=== PATIENT | female | born 1945 | race Caucasian/White ===

== ENCOUNTER 2016-06-12 14:53 | Emergency (ER) | payer MEDICARE ==
[2016-06-12] MEDS ORDERED: ALUMINUM & MAGNESIUM HYDROXIDE 30 ML UD PO ONE (15:06)
[2016-06-12] MEDS ORDERED: ACETAMINOPHEN 325 MG TAB PO ONE (15:06)
[2016-06-12 16:47] VITALS: BP 118/60; O2SAT 94
--- NOTE | 2016-06-12 16:59 | ED.PDOC ---
History of Present Illness - General Chief Complaint: Fever Stated Complaint: fever,chills,nausea,JAVED Time Seen by Provider: 06/12/16 14:58 Source: patient Exam Limitations: no limitations - History of Present Illness Initial Comments: the patient is a 71-year-old female presenting to the emergency room secondary to nausea and vomiting mild body aches and mild headache for the last 12 hours. No blood or bile in the vomitus. No diarrhea. No syncope or near syncope. She has had a fever. She has had some questionable urinary symptoms. No rash. Mild sore throat. Severity: moderate Improving Factors: medication Worsening Factors: nothing Associated Symptoms: loss of appetite, malaise, nausea/vomiting Allergies/Adverse Reactions: Allergies Sulfa Antibiotics Allergy (Verified 06/12/16 15:15) Home Medications: Ambulatory Orders Ondansetron [Zofran Odt] 4 mg PO Q4H PRN #10 tab 06/12/16 Review of Systems - Review of Systems Constitutional: States: fever, malaise EENTM: States: no symptoms reported, throat pain - mild Respiratory: States: no symptoms reported Cardiology: States: no symptoms reported Gastrointestinal/Abdominal: States: see HPI Genitourinary: States: frequency Musculoskeletal: States: other - mild generalized body aches Skin: States: no symptoms reported Neurological: States: headache - mild Endocrine: States: no symptoms reported All other Systems: No Change from Baseline Past Medical History (General) - Patient Medical History Hx Diabetes: No Hx Cancer: Yes - Skin,Breast - Vaccination History Hx Influenza Vaccination: Yes Hx Pneumococcal Vaccination: Yes - Social History Hx Tobacco Use: Yes Family Medical History - Family History Mother Family History: Unknown Living Status: Unknown Physical Exam - Physical Exam General Appearance: Alert, Comfortable, No apparent distress Eye Exam: bilateral normal Ears, Nose, Throat: hearing grossly normal, normal ENT inspection, normal pharynx Neck: non-tender, full range of motion, supple, normal inspection Respiratory: chest non-tender, lungs clear, normal breath sounds, no respiratory distress, no accessory muscle use Cardiovascular/Chest: normal peripheral pulses, regular rate, rhythm, no edema Peripheral Pulses: radial,right: 2+, radial,left: 2+, dorsalis pedis,right: 2+, dorsalis pedis,left: 2+ Gastrointestinal/Abdominal: soft, other - mild epigastric discomfort palpation Rectal Exam: deferred Back Exam: normal inspection, no CVA tenderness Extremity: normal range of motion, non-tender, normal inspection, no pedal edema , normal capillary refill Neurologic: cranberry grower II-XII nml as tested, alert, normal mood/affect, oriented x 3 Skin Exam: normal color Comments: Vital Signs - 24 hr 06/12/16 06/12/16 06/12/16 15:04 16:36 16:46 Temperature 101.4 F H 100.4 F H Pulse Rate [ 97 H 94 H Left Brachial] Respiratory 20 16 Rate Blood Pressure 150/83 118/60 [Left Arm] O2 Sat by Pulse 100 94 L Oximetry Progress - Progress Progress: 06/12/16 16:59 the patient is a 71-year-old female presenting with a viral syndrome giving symptoms of primarily a gastroenteritis. She needs to keep herself well hydrated. She will receive a prescription for Zofran for as needed use to control the nausea. Maalox additionally can be used for gastritis symptoms. She needs to follow up with her primary care doctor towards the end of the week. A check of the urine shows no evidence of urinary tract infection. The patient is feeling significantly better after her fever was under control. - Results/Orders Results/Orders: Laboratory Tests 06/12/16 06/12/16 15:06 15:17 Urine Color Yellow Urine Appearance Cloudy Urine pH 7.5 Ur Specific [place] 1.020 Urine Protein Negative Urine Glucose (UA) Negative Urine Ketones Negative Urine Blood Small H Urine Nitrite Negative Urine Bilirubin Negative Urine Urobilinogen 2.0 H Ur Leukocyte Esterase Negative Urine RBC 3-5 H Urine WBC 0 Ur Epithelial Cells 5-10 Urine Bacteria 0 Urine Mucus Moderate Group A Strep Rapid Negative rapid flu and rapid strep are negative. Departure - Departure Clinical Impression: Viral syndrome Disposition: Discharge to Home or Self Care Condition: Fair Departure Forms: ED Discharge - Pt. Copy, Patient Portal Self Enrollment Instructions: DI for Viral Gastroenteritis -- Adult Diet: bland diet Activity: increase activity as tolerated Referrals: LELAND BURKS [Primary Care Provider] - 1-2 Weeks Prescriptions: Ondansetron [Zofran Odt] 4 mg PO Q4H PRN #10 tab PRN Reason: Vomiting Home Medications: Ambulatory Orders Ondansetron [Zofran Odt] 4 mg PO Q4H PRN #10 tab 06/12/16 Comments: the patient is a 71-year-old female presenting with a viral syndrome giving symptoms of primarily a gastroenteritis. She needs to keep herself well hydrated. She will receive a prescription for Zofran for as needed use to control the nausea. Maalox additionally can be used for gastritis symptoms. She needs to follow up with her primary care doctor towards the end of the week. A check of the urine shows no evidence of urinary tract infection. The patient is feeling significantly better after her fever was under control.
[2016-06-12 17:07] VITALS: TEMP 100.1
== END 2016-06-12 17:06 | disposition home or self-care (01) ==
LOC: ER 14:53
DX: B34.9 Viral infection, unspecified (principal); Z88.2 Allergy status to sulfonamides; Z85.828 Personal history of other malignant neoplasm of skin; Z85.3 Personal history of malignant neoplasm of breast; Z87.891 Personal history of nicotine dependence

== ENCOUNTER 2020-01-23 19:26 | Emergency (ER) | payer MEDICARE, OTHER ==
--- NOTE | 2020-01-23 20:10 | RAD ---
EXAM DESCRIPTION: XR Knee, Left Complete CLINICAL HISTORY: fall TECHNIQUE: Three views of the left knee are submitted. COMPARISON: None available for comparison FINDINGS: Bones: Osseous structures are osteopenic. Obliquely oriented lucency extending from the tibial eminence to the lateral tibial metaphysis on one view. Cortical step-off along the medial aspect of the fibular head. Joints: No dislocation. No appreciable joint effusion. Soft tissues: Unremarkable IMPRESSION: Possible lateral tibial plateau and fibular head fractures. Electronically signed by: Theo Vasquez MD 01/23/2020 8:08 PM CDT
--- NOTE | 2020-01-23 20:43 | ED.PDOC ---
History of Present Illness - General Chief Complaint: Trauma Stated Complaint: my left knee hurts Time Seen by Provider: 01/23/20 20:17 Source: patient, RN notes reviewed, Vital Signs reviewed, family - Exam Limitations: no limitations - History of Present Illness Initial Comments: Patient is a 74-year-old white female who presents with complaints of left knee pain. Patient was working in the backyard when she slipped down a curve's between 2 stones approximately 3 feet and landed hard on her left leg. She did not twist it at that time. Patient complains of inability to weight-bear. The pain is stabbing/throbbing in nature. It is moderate in intensity. There is no radiation of the pain. It is worse with twisting of the knee or attempting to stand on it. It is better with ice and elevation. The pain is constant. Occurred: just prior to arrival Severity: moderate Pain Location: lower extremity - left knee Method of Injury: fall Improving Factors: cold therapy, immobilization Worsening Factors: movement, other - standing/walking Loss of Consciousness: no loss of consciousness Associated Symptoms (Fall): denies symptoms Allergies/Adverse Reactions: Allergies Sulfa Antibiotics Allergy (Verified 06/12/16 15:15) Home Medications: Ambulatory Orders Alendronate Sodium [Fosamax] 70 mg PO WKLY 01/23/20 Levothyroxine Sodium [Synthroid] 88 mcg PO DAILY 01/23/20 Review of Systems - Review of Systems Constitutional: States: no symptoms reported, see HPI. Denies: chills, fever, malaise, weakness EENTM: States: no symptoms reported. Denies: eye pain, blurred vision, double v ision Respiratory: States: no symptoms reported. Denies: wheezing Cardiology: States: no symptoms reported. Denies: chest pain, palpitations, syncope Gastrointestinal/Abdominal: States: no symptoms reported. Denies: abdominal pain, nausea, vomiting Genitourinary: States: no symptoms reported. Denies: dysuria, frequency Musculoskeletal: States: see HPI, joint pain, joint swelling. Denies: back pain Skin: States: no symptoms reported. Denies: change in color, rash Neurological: States: no symptoms reported. Denies: tingling, tremors, other Endocrine: States: no symptoms reported. Denies: increased hunger, increased thirst, increased urine Hematologic/Lymphatic: States: no symptoms reported. Denies: blood clots, easy bleeding All other Systems: Reviewed and Negative, No Change from Baseline Past Medical History (General) - Patient Medical History Hx Diabetes: No Hx Cancer: Yes - Skin,Breast - Vaccination History Hx Tetanus, Diphtheria Vaccination: Yes - tetanus 2020 Hx Influenza Vaccination: Yes Hx Pneumococcal Vaccination: Yes - due this year for pneumonia Immunizations Up to Date: Yes - Social History Hx Tobacco Use: No Hx Alcohol Use: No Hx Substance Use: No Hx Substance Use Treatment: No Hx Depression: No Family Medical History - Family History Mother Family History: Unknown Living Status: Unknown Physical Exam - Physical Exam General Appearance: Alert, Anxious, Well Developed, Well Groomed, Well Hydrated, Well Nourished Head Injury: no evidence of injury Eye Exam: bilateral normal ENT Exam: hearing grossly normal, no evidence of ENT injury, no dental injury Neck Exam: non-tender, full range of motion, normal alignment Cardiovascular/Respiratory: regular rate, rhythm, no M/R/G, normal peripheral pulses, no JVD, normal breath sounds, no respiratory distress Gastrointestinal/Abdominal: normal bowel sounds, non tender, soft, no organomegaly Back Exam: normal inspection, no CVA tenderness, no vertebral tenderness Extremity Exam: pelvis stable, joint effusion - left knee, tenderness - left lateral/posterior knee. +Pain with valgus stress. No joint laxity., unable to bear weight Neurologic: dry curer II-XII nml as tested, no motor/sensory deficits, alert, normal mood/affect, oriented x 3 Skin Exam: normal color, warm/dry - Sharif Coma Score Best Eye Response ([place]): (4) open spontaneously Best Verbal Response (Sharif): (5) oriented Best Motor Response (Sharif): (6) obeys commands Progress - Progress Progress: Differential diagnosis: Knee contusion, knee sprain, fibular head fracture, tibia fracture among others. 01/23/20 22:47 CT scan shows a tibial plateau fracture and fibular head fracture. I have discussed this with Dr. cardenas and he recommends knee immobilizer, crutches and nonweightbearing and follow-up in his clinic in the next few days. I discussed this plan of care with the patient and his and they voiced understanding and agreement with the plan of care. Plan discharge home at this time. Jensen Mahmood M.D. #[id number] - Results/Orders Results/Orders: EXAM DESCRIPTION: XR Knee, Left Complete CLINICAL HISTORY: fall TECHNIQUE: Three views of the left knee are submitted. COMPARISON: None available for comparison FINDINGS: Bones: Osseous structures are osteopenic. Obliquely oriented lucency extending from the tibial eminence to the lateral tibial met aphysis on one view. Cortical step-off along the medial aspect of the fibular head. Joints: No dislocation. No appreciable joint effusion. Soft tissues: Unremarkable IMPRESSION: Possible lateral tibial plateau and fibular head fractures. PROCEDURE: CT LOWER EXTREMITY WITHOUT IV CONTRAST CLINICAL HISTORY: left knee pain TECHNIQUE: Contiguous axial CT images obtained through the left knee with out IV contrast. Coronal and sagittal reformatted images were provided. This exam was performed according to our departmental dose-optimization program, which includes automated exposure control, adjustment of the mA and/or kV according to patient size and/or use of iterative reconstruction technique. COMPARISON: Correlation is made with left knee x-ray dated 01/23/2020 FINDINGS: Bones: Osseous structures are osteopenic. Obliquely oriented fracture extending from the tibial eminence to the lateral aspect of the proximal tibial metaphysis and involving approximately 50% of the articular surface. No cortical step-off at the articular surface. Mildly displaced fibular head fracture. Joints: No dislocation. Small lipohemarthrosis. Soft tissues: Mild surrounding superficial and deep soft tissue edema. IMPRESSION: Lateral tibial plateau and fibular head fractures. Electronically signed by: Theo Vasquez MD 01/23/2020 10:25 PM CDT Departure - Departure Clinical Impression: Tibial plateau fracture, left Qualifiers: Encounter type: initial encounter Fracture type: closed Qualified Code(s): S82.142A - Displaced bicondylar fracture of left tibia, initial encounter for closed fracture Fracture of head of left fibula Qualifiers: Encounter type: initial encounter Fracture type: closed Qualified Code(s): S82.832A - Other fracture of upper and lower end of left fibula, initial encounter for closed fracture Fall Qualifiers: Encounter type: initial encounter Qualified Code(s): W19.XXXA - Unspecified fall, initial encounter Time of Disposition: 22:50 Disposition: Discharge to Home or Self Care Condition: Good Departure Forms: ED Discharge - Pt. Copy, Patient Portal Self Enrollment Instructions: DI for Trauma, Tibial Plateau Fracture (DC), Fibula Fracture (DC) Diet: resume usual diet Activity: other - non weight bearing. Use crutches. Referrals: LELAND BURKS [Primary Care Provider] - 1-2 Weeks Beau Cardenas MD [Active Staff] - 1-5 Days Home Medications: Ambulatory Orders Alendronate Sodium [Fosamax] 70 mg PO WKLY 01/23/20 Levothyroxine Sodium [Synthroid] 88 mcg PO DAILY 01/23/20
[2020-01-23 22:18] VITALS: O2SAT 100
--- NOTE | 2020-01-23 22:27 | CT ---
PROCEDURE: CT LOWER EXTREMITY WITHOUT IV CONTRAST CLINICAL HISTORY: left knee pain TECHNIQUE: Contiguous axial CT images obtained through the left knee without IV contrast. Coronal and sagittal reformatted images were provided. This exam was performed according to our departmental dose-optimization program, which includes automated exposure control, adjustment of the mA and/or kV according to patient size and/or use of iterative reconstruction technique. COMPARISON: Correlation is made with left knee x-ray dated 01/23/2020 FINDINGS: Bones: Osseous structures are osteopenic. Obliquely oriented fracture extending from the tibial eminence to the lateral aspect of the proximal tibial metaphysis and involving approximately 50% of the articular surface. No cortical step-off at the articular surface. Mildly displaced fibular head fracture. Joints: No dislocation. Small lipohemarthrosis. Soft tissues: Mild surrounding superficial and deep soft tissue edema. IMPRESSION: Lateral tibial plateau and fibular head fractures. Electronically signed by: Theo Vasquez MD 01/23/2020 10:25 PM CDT
[2020-01-23 23:16] VITALS: BP 167/101; TEMP 97.4
== END 2020-01-23 23:16 | disposition home or self-care (01) ==
LOC: ER 19:26
DX: S82.142A Displaced bicondylar fracture of left tibia, initial encounter for closed fracture (principal); Z85.828 Personal history of other malignant neoplasm of skin; Z85.3 Personal history of malignant neoplasm of breast; Z88.2 Allergy status to sulfonamides; W01.0XXA Fall on same level from slipping, tripping and stumbling without subsequent striking against object, initial encounter; Y93.H2 Activity, gardening and landscaping; Y92.007 Garden or yard of unspecified non-institutional (private) residence as the place of occurrence of the external cause

== ENCOUNTER → 2020-02-13 | Outpatient (CLI) | payer OTHER ==
--- NOTE | 2020-02-13 08:52 | RAD ---
EXAM DESCRIPTION: Knee,Left 1 or 2 Views CLINICAL HISTORY: CLOSED FX OF LEFT TIBIAL PLATEAU COMPARISON: January 23, 2020 IMPRESSION: 2 views of the left knee show severe diffuse osteopenia the osseous structures. The left lateral tibial plateau fracture shows sclerotic changes and indistinctness of the fracture margin suggesting mild healing similar to previous exam. Comminuted mildly displaced fracture of the fibular head is also seen similar to previous exam. Mild 3 compartment osteoarthritic changes of the knee are seen. No significant joint effusion. Electronically signed by: Oziel Romo MD 02/13/2020 8:51 AM CDT
== END ==
LOC: RAD 08:21
PROVIDERS: ATTEND Orthopaedic Surgery
DX: S82.142D Displaced bicondylar fracture of left tibia, subsequent encounter for closed fracture with routine healing (principal); S82.832D Other fracture of upper and lower end of left fibula, subsequent encounter for closed fracture with routine healing; M17.12 Unilateral primary osteoarthritis, left knee; M85.862 Other specified disorders of bone density and structure, left lower leg

== ENCOUNTER → 2020-03-19 | Outpatient (CLI) | payer OTHER ==
--- NOTE | 2020-03-19 13:47 | RAD ---
EXAM DESCRIPTION: Knee,Left 1 or 2 Views CLINICAL HISTORY: 74 years Female, closed fracture pf left tibial plateau COMPARISON: 02/13/2020 Findings: Two view(s)/radiograph(s) Osteopenia. No significant joint effusion. Stable degenerative changes. Increased sclerosis associated with the comminuted lateral tibial plateau fracture which suggests healing. Healing proximal fibular fracture. No new fracture. No dislocation. IMPRESSION: Healing fractures of the proximal left tibia and fibula. Electronically signed by: Glen Majano MD 03/19/2020 1:46 PM [facility]
== END ==
LOC: RAD 08:48
PROVIDERS: ATTEND Orthopaedic Surgery
DX: S82.142D Displaced bicondylar fracture of left tibia, subsequent encounter for closed fracture with routine healing (principal); S82.832D Other fracture of upper and lower end of left fibula, subsequent encounter for closed fracture with routine healing

== ENCOUNTER → 2020-03-24 | Outpatient (CLI) | payer OTHER ==
--- NOTE | 2020-03-25 08:26 | RAD ---
EXAM: Knee,Left 1 or 2 Views CLINICAL HISTORY: CLOSED FRACTURE OF LEFT TIBIAL PLATEAU COMPARISON STUDY: Left knee x-rays from March 19, 2020 TECHNICAL: AP and lateral x-rays of the left knee. FINDINGS: Fractures involving the left lateral tibial plateau and proximal fibula show ongoing sclerosis/healing. There is no lucency identified. There is no new fracture and no dislocation. There is a very small joint effusion. IMPRESSION: Ongoing healing of the left tibial plateau fracture and left proximal fibular fracture. Electronically signed by: Alan Thurston MD 03/25/2020 8:25 AM [facility]
== END ==
LOC: RAD 12:13
PROVIDERS: ATTEND Orthopaedic Surgery
DX: S82.142D Displaced bicondylar fracture of left tibia, subsequent encounter for closed fracture with routine healing (principal); S82.832D Other fracture of upper and lower end of left fibula, subsequent encounter for closed fracture with routine healing

== ENCOUNTER → 2020-04-07 | Outpatient (CLI) | payer OTHER ==
--- NOTE | 2020-04-07 13:10 | RAD ---
EXAM DESCRIPTION: Knee,Left 1 or 2 Views CLINICAL HISTORY: 74 years Female, closed fracture of left tibial plateau COMPARISON: Left knee radiograph 03/24/2020. TECHNIQUE: 2 view radiograph of the left knee. IMPRESSION: Ongoing healing of lateral tibial plateau for fracture and fibular head fracture. Fracture remains somewhat visible. Moderate joint space narrowing at the weightbearing knee compartment. Mild patellofemoral arthrosis. Small suprapatellar knee joint effusion. Electronically signed by: Nilay Reveles MD 04/07/2020 1:08 PM [facility]
== END ==
LOC: RAD 08:39
PROVIDERS: ATTEND Orthopaedic Surgery
DX: S82.142D Displaced bicondylar fracture of left tibia, subsequent encounter for closed fracture with routine healing (principal); M25.862 Other specified joint disorders, left knee; M17.12 Unilateral primary osteoarthritis, left knee; M25.462 Effusion, left knee

== ENCOUNTER → 2020-04-20 | Outpatient (CLI) | payer OTHER ==
--- NOTE | 2020-04-20 10:56 | RAD ---
EXAM: Knee,Left 1 or 2 Views CLINICAL HISTORY: CLOSED FX OF LEFT TIVIAL PLATEAU COMPARISON STUDY: Left knee x-rays from April 07, [address] left knee from January 23, 2020 TECHNICAL: AP and lateral x-ray images of the left knee. FINDINGS: The lateral tibial plateau fracture is sclerotic consistent with healing. New bone formation along the fibular head fracture is noted. There is less lucency at both fracture sites. Mild to moderate degenerative changes of all 3 compartments are stable. IMPRESSION: 1. Healing left lateral tibial plateau fracture. Healing left fibular head fracture. 2. Mild to moderate tricompartmental osteoarthritic changes. Electronically signed by: Alan Thurston MD 04/20/2020 10:55 AM [facility]
== END ==
LOC: RAD 09:07
PROVIDERS: ATTEND Orthopaedic Surgery
DX: S82.142D Displaced bicondylar fracture of left tibia, subsequent encounter for closed fracture with routine healing (principal); S82.832D Other fracture of upper and lower end of left fibula, subsequent encounter for closed fracture with routine healing; M17.12 Unilateral primary osteoarthritis, left knee